=== PATIENT | male | born 1955 | race Caucasian/White ===

== ENCOUNTER → 2023-05-14 | Outpatient (REF) | LOC: M SLEEP HO 10:00 | PROVIDERS: ATTEND Registered Nurse | DX: G47.33 Obstructive sleep apnea (adult) (pediatric) (principal) ==

== ENCOUNTER → 2023-09-26 | Outpatient (CLI) | payer MEDICARE, BC | LOC: M PLALAB 10:24 | PROVIDERS: ATTEND Physician Assistant | DX: R97.20 Elevated prostate specific antigen [PSA] (principal) ==